=== PATIENT | female | born 1960 | race Caucasian/White ===

== ENCOUNTER 2017-07-13 17:03 | Emergency (ER) | payer MEDICARE, OTHER ==
[~2017-07-13] VITALS: Ht 154.9 cm; Wt 50.0 kg
[2017-07-13] MEDS ORDERED: normal saline 1000ML IV soln IV ONE (18:30)
[2017-07-13 18:56] LABS: BASOPHILS % (AUTO) 0.1 % (0-1); EOSINOPHILS # (AUTO) 0.1 X10'3 (0-0.9); EOSINOPHILS % (AUTO) 0.7 % (0-6); HEMATOCRIT 35.4 % (35.0-45.0); HEMOGLOBIN 12.1 g/dl (12.0-16.0); LYMPHOCYTES # (AUTO) 0.6 X10'3 (1.1-4.8); LYMPHOCYTES % (AUTO) 6.4 % (21-51); MEAN CORPUSCULAR HEMOGLOBIN 30.7 PG (27.0-31.0); MEAN CORPUSCULAR HGB CONC 34.2 % (33.0-36.5); MEAN CORPUSCULAR VOLUME 89.9 FL (78-98); MEAN PLATELET VOLUME 7.1 FL (7.4-10.4); MONOCYTES # (AUTO) 0.5 X10'3 (0-0.9); NEUTROPHILS # (AUTO) 8.7 X10'3 (1.8-7.7); NEUTROPHILS % (AUTO) 87.8 % (42-75); PLATELET COUNT 272 X10'3 (140-440); RED BLOOD COUNT 3.94 X10'6 (4.20-5.60); RED CELL DISTRIBUTION WIDTH 13.1 % (11.5-14.5); WHITE BLOOD COUNT 9.9 X10'3 (4.5-11.0)
[2017-07-13 19:12] LABS: ALANINE AMINOTRANSFERASE 29 U/L (12-78); ALBUMIN 3.2 G/DL (3.4-5.0); ALBUMIN/GLOBULIN RATIO 0.8 (1.1-1.5); ALKALINE PHOSPHATASE 80 IU/L (46-116); ANION GAP 6 (8-16); ASPARTATE AMINO TRANSFERASE 17 U/L (10-37); BILIRUBIN,TOTAL 0.3 MG/DL (0.1-1.0); BLOOD UREA NITROGEN 13 MG/DL (7-18); BUN/CREATININE RATIO 22.8 (6.6-38.0); CALCIUM 8.7 MG/DL (8.5-10.1); CHLORIDE 98 MMOL/L (99-107); CREATININE 0.57 MG/DL (0.40-0.90); GLUCOSE 134 MG/DL (70-104); MAGNESIUM 1.9 MG/DL (1.5-2.4); POTASSIUM 4.1 MMOL/L (3.5-5.1); SODIUM 134 MMOL/L (135-145); TOTAL CARBON DIOXIDE 29.6 MMOL/L (24-32); eGFR > 90 ML/MIN
[2017-07-13 19:19] LABS: PARTIAL THROMBOPLASTIN TIME 35 SECONDS (22-32); PROTHROMBIN TIME 10.7 SECONDS (9.0-12.0)
[2017-07-13 19:48] LABS: URINE HCG NEGATIVE (NEG)
[2017-07-13] MEDS ORDERED: BACL10TA PO (19:49)
[2017-07-13] MEDS ORDERED: DIME240C2 (19:49)
[2017-07-13] MEDS ORDERED: GABA-532 PO (19:49)
[2017-07-13] MEDS ORDERED: ARMO250T4 PO (19:49)
[2017-07-13] MEDS ORDERED: NORT25CA PO (19:49)
[2017-07-13 19:57] LABS: CLARITY,URINE SLIGHTLY CLOUDY (Clear); COLOR,URINE YELLOW (Yellow); GLUCOSE, URINE NEGATIVE (Neg); KETONES,URINE NEGATIVE (Neg); LEUKOCYTE ESTERASE ,URINE TRACE (Neg); NITRITES, URINE NEGATIVE (Neg); OCCULT BLOOD,URINE MODERATE (Neg); PROTEIN,URINE 30 mg/dl (Neg)
[2017-07-13 20:04] LABS: UA COLLECTION TYPE CLN CATCH MIDSTREAM
[2017-07-13 20:11] LABS: WBC,URINE 0-4 /HPF (0-4)
[2017-07-13 20:12] LABS: BACTERIA,URINE FEW /HPF (Neg); MUCUS STRANDS FEW /LPF (Neg); SQUAMOUS EPITHELIAL CELL,UR FEW /LPF (FEW); TRANSITIONAL EPI CELLS,URINE FEW /HPF
[2017-07-13 20:54] VITALS: BP 125/68
== END 2017-07-13 21:36 | disposition home or self-care (01) ==
LOC: ER 17:04
DX: M13.0 Polyarthritis, unspecified (principal); R70.0 Elevated erythrocyte sedimentation rate; G35 Multiple sclerosis; R00.0 Tachycardia, unspecified; Z88.8 Allergy status to other drugs, medicaments and biological substances; Z79.899 Other long term (current) drug therapy; W18.39XA Other fall on same level, initial encounter; Y93.89 Activity, other specified; Y92.89 Other specified places as the place of occurrence of the external cause; Y99.8 Other external cause status; R79.1 Abnormal coagulation profile
CPT/HCPCS: 36415; 71045; 80053; 81001; 81025; 83605; 83735; 84145; 85025; 85610; 85651; 85730; 87040; 87088; 93005; 99285; J7030

== ENCOUNTER 2020-11-10 09:14 | Emergency (ER) | payer MEDICARE, OTHER ==
[~2020-11-10] VITALS: Ht 154.9 cm; Wt 70.0 kg
[~2020-11-10 09:14] MED LIST: ARMO250T4 PO; BACL10TA PO; DIME240C2; GABA-532 PO; NORT25CA PO
[2020-11-10 09:32] VITALS: BP 119/63
[2020-11-10 13:53] LABS: BASOPHILS % (AUTO) 0.4 % (0-1); EOSINOPHILS % (AUTO) 0.8 % (0-6); HEMATOCRIT 39.3 % (35.0-45.0); LYMPHOCYTES # (AUTO) 0.9 X10'3 (1.1-4.8); LYMPHOCYTES % (AUTO) 21.9 % (21-51); MEAN CORPUSCULAR HEMOGLOBIN 30.5 PG (27.0-31.0); MEAN CORPUSCULAR VOLUME 92.6 FL (78-98); MEAN PLATELET VOLUME 8.5 FL (7.4-10.4); MONOCYTES # (AUTO) 0.4 X10'3 (0-0.9); MONOCYTES % (AUTO) 10.1 % (2-12); NEUTROPHILS # (AUTO) 2.7 X10'3 (1.8-7.7); NEUTROPHILS % (AUTO) 66.8 % (42-75); PLATELET COUNT 151 X10'3 (140-440); RED BLOOD COUNT 4.25 X10'6 (4.20-5.60); RED CELL DISTRIBUTION WIDTH 13.9 % (11.5-14.5); WHITE BLOOD COUNT 4.1 X10'3 (4.5-11.0)
== END 2020-11-10 15:51 | disposition home or self-care (01) ==
LOC: ER 09:14
DX: J06.9 Acute upper respiratory infection, unspecified (principal); Z20.822 Contact with and (suspected) exposure to COVID-19; Z88.8 Allergy status to other drugs, medicaments and biological substances; Z79.899 Other long term (current) drug therapy; Z72.89 Other problems related to lifestyle
CPT/HCPCS: 36415; 71045; 85025; 87635; 99284; C9803